=== PATIENT | male | born 1975 | race African-American/Black ===

== ENCOUNTER 2023-06-04 05:06 | Emergency (ER) | payer SELFPAY ==
--- NOTE | ~2023-06-04 | CT_ITS ---
Non-contrast CT scan of the Abdomen and Pelvis Clinical indication: Flank pain, hematuria Technique: 2.5 mm axial scans were obtained through the abdomen and pelvis without intravenous or or al contrast. Dose reduction technique was used on this scan by utilizing automated exposure control a nd iterative reconstruction technique. The dose-length product (DLP) was 561.90 mGy-cm. Findings: Images through the lung bases reveal no abnormalities. Right kidney unremarkable. There is severe left hydronephrosis with probable diffuse cortical thinnin g. Left ureteral stent in place. There is an 8 mm round stone at the proximal left ureter adjacent to the proximal pigtail of the ureteral stent. The liver, spleen, pancreas, gallbladder, and adrenals appear normal. There is no aortic aneurysm. There is no evidence of bowel obstruction. Images through the pelvis were performed. There is no evidence of ascites or lymphadenopathy. Urinary bladder unremarkable aside from the distal portion of the stent present. No pelvic mass seen. Impression: Severe left hydroureteronephrosis. Given apparent cortical thinning, this is suspected to be at least in part chronic in nature. Correlate with clinical history. Left ureteral stent in place, with 8 mm stone adjacent to the proximal pigtail at the proximal left u reter. Reviewed, dictated and finalized at location M. AND DETONATOR Impression: Severe left hydroureteronephrosis. Given apparent cortical thinning, this is junior spected to be at least in part chronic in nature. Correlate with clinical histo ry. Left ureteral stent in place, with 8 mm stone adjacent to the proximal pigtail at the proximal left ureter.
[2023-06-04 05:14] VITALS: BP 158/107; PULSE 84; RESP 16; TEMP 36.2; O2SAT 100
[2023-06-04 05:34] VITALS: BP 153/94; PULSE 88; RESP 18; O2SAT 97
[2023-06-04 05:54] LABS: Basophils Absolute Auto 0.1 K/mm3 (0.0-0.1); Basophils Percent Auto 0.6 % (0.2-1.2); Eosinophils Absolute Auto 0.3 K/mm3 (0-0.3); Eosinophils Percent Auto 3.4 % (0-4.4); Hematocrit 43.8 % (42.0-52.0); Hemoglobin 13.9 g/dL (14.0-18.0); Immature Granulocyte Absolute 0.03 K/mm3 (0.00-0.031); Immature Granulocyte Percent A 0.4 % (0-0.5); Lymphocytes Absolute Auto 3.75 K/mm3 (0.9-3.2); Lymphocytes Percent Auto 45.6 % (18.3-44.2); Mean Corpuscular HGB Conc 31.7 g/dl (32-36); Mean Corpuscular Hemoglobin 27.5 pg (26-34); Mean Corpuscular Volume 86.7 fl (80-100); Monocytes Absolute Auto 0.7 K/mm3 (0.1-0.6); Monocytes Percent Auto 8.4 % (2.6-8.5); Neutrophils Absolute Auto 3.4 K/mm3 (1.3-6.7); Neutrophils Percent Auto 41.6 % (45.5-73.1); Platelet Count Result 276 k/mm3 (150-375); Red Blood Count 5.05 M/mm3 (4.6-6.20); Red Cell Distribution Width 13.6 % (11.5-14.5); White Blood Count 8.2 K/mm3 (4.5-10.0)
[2023-06-04 06:05] LABS: Appearance Urine Cloudy (Clear); Bacteria Urine None Seen /hpf; Bilirubin Urine Negative (Negative); Blood Urine 3+ (Negative); Color Urine Yellow (Yellow); Glucose Urine UA Negative (Negative); Ketones Urine Negative (Negative); Leukocyte Esterase Ur 1+ LEU/UL (Negative); Nitrate Urine Negative (Negative); Non Pathogenic Casts 0-2; Protein Urine 1+ mg/dL (Negative); RBC Urine >100 /hpf (0-2); Specific Grav Ur 1.012 (1.001-1.035); Squamous Epithelial Cell Urine None seen /hpf (Few); Urobilinogen Urine 0.2 mg/dL (<2.0)
[2023-06-04 06:09] LABS: Alanine Aminotransferase 30 U/L (6-50); Albumin Level 4.1 g/dL (3.5-5.1); Alkaline Phosphatase 85 U/L (38-126); Anion Gap 8 mmol/L (8-16); Aspartate Amino Transferase 28 U/L (17-59); Bilirubin,Total 0.3 mg/dL (0.2-1.3); Blood Urea Nitrogen 19 mg/dL (9-20); Calcium 9.3 mg/dL (8.4-10.2); Carbon Dioxide 25 mmol/L (22-30); Chloride 108 mmol/L (98-107); Estimated CRCL calculation 86 ml/min; Estimated Glomerular Filt Rate > 60; Glucose 120 mg/dL (65-110); Lactic Acid Reflex 1.4 mmol/L (0.7-2.0); Lipase 138 U/L (23-300); Potassium 3.6 mmol/L (3.4-5.0); Sodium 141 mmol/L (137-145)
[2023-06-04 06:10] LABS: Add Urine Microscopic? YES
[2023-06-04 06:48] VITALS: BP 137/92; PULSE 67; RESP 20; O2SAT 98
--- NOTE | 2023-06-04 07:01 | ED.ABDPAIN ---
HPI - Abdominal Pain General Chief Complaint: Abdominal Pain Stated Complaint: Abd pain Time Seen by Provider: 06/04/23 06:54 History of Present Illness HPI narrative: Patient is a 48-year-old male with history of recurrent left-sided ureteral kidney stone here with left-sided flank pain and suprapubic pain. He states that on April 15 he was diagnosed with a 9 mm stone in his left ureter. On May he underwent attempt of lithotripsy and stent placement. He notes that the procedure was largely unsuccessful per his urologist and he is currently scheduled for a IR guided percutaneous nephrostomy tube on June 11 and a repeat scope through this nephrostomy tube on July 28. He states that since his lithotripsy and stent placement he has been having pain. Was initially prescribed peridium, oxybutynin, Flomax, oxycodone. He stop taking the is a few days ago because he was feeling well. He notes that after his procedure he initially had some nemo hematuria which has cleared now has yellow urine. All of his care was provided where he lives in [place] at [facility] in [place], [place]. He believes his physician was Dr. Zhang [phone]. He notes some a burning and pain at the end of his urinary stream. He notes some increased urinary urgency but denies increased urinary frequency. No fever or chills. Related Data Allergies Allergy/AdvReac Type Severity Reaction Status Date / Time No Known Allergies Allergy Verified 06/04/23 05:37 Review of Systems Review of Systems: All systems reviewed & are unremarkable except as noted in HPI and below Exam Narrative: GENERAL: Well-appearing, well-nourished, and in no acute distress. HEAD: Normocephalic, atraumatic. EYES: PERRLA and EOMI. ENT: Nares clear. Mucous membranes moist. NECK: Supple. CHEST: Clear to auscultation. No respiratory distress. HEART: Regular rate and rhythm. Normal peripheral pulses. ABDOMEN: Soft, nontender, nondistended. No CVA tenderness. EXTREMITIES: Normal range of motion. No edema. SKIN: Warm, dry, no rash. NEURO: No focal deficits. Alert and oriented x3. PSYCH: Normal mood and affect. Course Course Emergency Course: Chart review performed. Patient here with abdominal pain. Reportedly visiting from [place], has known kidney stone with stent in place. Triage vitals normal. Triage workup reviewed, no leukocytosis, renal function normal, UA shows >100 RBC, 1+ leukocyte esterase, 11-20 WBC, no bacteria. Patient seen evaluated, nontoxic appearing. Differentials include stent migration, discomfort from stent, less likely UTI. We will do CT abdomen pelvis without contrast to evaluate the stent and hydronephrosis. Will then attempt to discuss with his urologist regarding plan of care moving forward. Toradol ordered for pain, patient agreeable to workup and plan. CT shows severe left hydroureteronephrosis, appears somewhat chronic in nature, left ureteral stent in place with 8 mm stone adjacent to proximal ureter. Spoke with the line construction superintendent physician with patient's urologist group at [facility], agrees with antibiotics, recommends bactrim BID for 7 days, reinitiating his medications prescribed for stent symptoms. The scheduling department will contact him to discuss moving up his nephrostomy placement. The results of pertinent diagnostic studies and exam findings were discussed. The patient?s provisional diagnosis and plan of care were discussed with the patient and present family. The patient and/or present family expressed understanding of the diagnosis and plan. The nurse was instructed to provide written instructions and appropriate follow-up information. The patient understands their need and responsibility to obtain additional follow-up as instructed. The risks of medications administered and prescribed were discussed with the patient and family present. Vital Signs Vital signs: Vital Signs Temperature 97.2 F L 06/04/23 05:14
[2023-06-04] MEDS: KETOROLAC 15 MG/ML VIAL (*BKC) IV PUSH (08:00)
[2023-06-04 08:35] VITALS: BP 126/93; PULSE 62; RESP 20; O2SAT 95
== END 2023-06-04 10:00 | disposition home or self-care (01) ==
PROVIDERS: Emergency Medicine; Emergency Provider Student in an Organized Health Care Education/Training Program
DX: N13.1 Hydronephrosis with ureteral stricture, not elsewhere classified (principal); N39.0 Urinary tract infection, site not specified
CPT/HCPCS: 36415; 74176; 80053; 81001; 82248; 83605; 83690; 85025; 87086; 96374; 99284; J1885